=== PATIENT | female | born 1970 | race African-American/Black ===

== ENCOUNTER 2019-05-11 17:34 | Emergency (ER) | payer MEDICARE ==
[~2019-05-11] VITALS: Ht 160 cm; Wt 200.0 kg
[2019-05-11] MEDS ORDERED: FUROSEMIDE 40MG/4ML VIAL IV ONE (18:30)
[2019-05-11] MEDS ORDERED: ASPIRIN 81MG TABLET PO ONE (18:30)
[2019-05-11 19:25] LABS: BASOPHILS % 0.9 % (0.0-2.0); HEMATOCRIT. 36.1 % (36.0-48.0); HEMOGLOBIN. 11.7 g/dL (12.0-16.0); LYMPHOCYTES % 25.9 % (20.0-50.0); MEAN CORPUSCULAR HEMOGLOBIN 28.8 pg (28.0-32.0); MEAN CORPUSCULAR VOLUME 88.6 fL (81.0-99.0); MEAN PLATELET VOLUME 8.6 fl (7.4-10.4); MONOCYTES % 8.3 % (2.0-8.0); NEUTROPHILS % 63.9 % (40.0-76.0); PLATELET 309 x1000/uL (130-400); RED BLOOD CELL COUNT 4.08 mill/uL (4.2-5.4); RED CELL DISTRIBUTION WIDTH 15.5 % (11.6-14.6)
[2019-05-11 19:30] LABS: CHLORIDE 105 mEq/L (98-107)
[2019-05-11] MEDS ORDERED: ALBUTEROL (0.083%) 2.5MG/3ML NEB HHN ONE (20:45)
[2019-05-11 22:15] VITALS: BP 154/98
== END 2019-05-11 23:43 | disposition home or self-care (01) ==
LOC: ER 17:34 → EDBD 17:34 → ER 23:43 → CANBEDREQ 05-12 01:42
DX: R06.00 Dyspnea, unspecified (principal); R07.89 Other chest pain; J45.909 Unspecified asthma, uncomplicated
CPT/HCPCS: 36415; 71045; 80053; 83880; 84484; 85025; 93005; 94640; 96374; 99284; J1940; J7611